=== PATIENT | male | born 1960 | race Caucasian/White ===

== ENCOUNTER → 2023-01-15 13:45 | Outpatient (BNVA) | payer SELFPAY | PROVIDERS: Visit Provider Family Medicine | DX: M06.9 Rheumatoid arthritis, unspecified (principal); M15.9 Polyosteoarthritis, unspecified; F17.200 Nicotine dependence, unspecified, uncomplicated; R03.0 Elevated blood-pressure reading, without diagnosis of hypertension | CPT/HCPCS: 80053; 80061; 85025; 85651; 86160; 86162; 86200; 86235; 86255; 86376; 86431 ==

== ENCOUNTER 2023-12-11 12:38 | Observation (INO) | payer SELFPAY ==
[2023-12-11] VITALS (23 sets, daily range): BP systolic 117–175; BP diastolic 67–110; PULSE 57–92; RESP 15–33; TEMP 36.7–36.9; O2SAT 93–100; BMI 21.1
--- NOTE | 2023-12-11 13:30 | XR_ITS ---
WS: [id number] Exam: XR chest 1V portable [id number] Date/Time of Exam: 12/11/2023 1:37 PM Reason For Exam: dyspnea/cough Exam: XR chest 1V portable [id number] Date/Time of Exam: 12/11/2023 1:37 PM Reason For Exam: dyspnea/cough No priors. The lungs are clear and fully inflated. Unremarkable cardiomediastinal silhouette. Bony structures ar e unremarkable. No pleural effusion. Moderate DJD of the LEFT shoulder. IMPRESSION: 1. No acute cardiopulmonary process.
--- NOTE | 2023-12-11 13:30 | ECG_ITS ---
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 Measurements Intervals [place] Rate: 179 P: 0 MN: 0 QRS: 78 QRSD: 92 T: 37 QT: 235 QTc: 406 Interpretive Statements ATRIAL FIBRILLATION WITH RAPID VENTRICULAR RESPONSE WITH ABERRANT CONDUCTION OR VENTRICULAR PREMATURE COMPLEXES NONSPECIFIC ST & T-WAVE ABNORMALITY CRITICAL TEST RESULT No previous ECG available for comparison Electronically Signed On 12-11-2023 17:59:46 POSTMASTER by Diane Morgan M.D. [id number]
--- NOTE | 2023-12-11 13:31 | ED_ITS ---
HPI - Arrhythmia/Palpitations 2 General: Chief Complaint: ER Hold Stated Complaint: Sent by urgent care Time Seen by Provider: 12/11/23 13:05 Source: patient Mode of arrival: ambulatory History of Present Illness: 63-year-old male who comes in the emerge ncy room from local clinic patient in rapid heart rate intermittently throughout the last week felt lightheaded dizzy some mild chest pain at time shortness of breath with exertion. He has not previously had this before. He has not taken any new or different medications recently. He denies any fever sweats chills nausea vomiting or diarrhea no productive cough MD complaint: rapid heart beat, heart racing , skipped beats , palpitations and irregular heart beat Duration: intermittent Severity: moderate Associated symptoms: Deny anxiety, cough, diaphoresis, muscle cramps, nausea, paresthesias, pre-syncope, sense of impending doom, short of breath, syncope or vomiting Review of Systems 2 Const: Denies: fever(s), chills or diaphoresis Card: Reports: chest pain, palpitations and irregular heart rhythm; Denies: syncope or pre-syncope Resp: Denies: dyspnea GI: Denies: abdominal pain, nausea or vomiting : Denies: dysuria, urinary frequency or urinary urgency Musc: Denies: neck pain, back pain or muscle cramps Skin/Breast: Denies: rash Psych: Denies: anxiety PFSH ED 2 PFSH: Medical History (Updated 12/22/23 @ 07:16 by Nik Gonzalez DO) Atrial fibrillation (HFpEF) heart failure with preserved eje ction fraction Essential hypertension Encounter for smoking cessation counseling Immunization counseling High risk medication use Seropositive rheumatoid arthritis of multiple sites Surgical History No pertinent past surgical history Family History Other Hypertension Rheumatoid arthritis Denies family history of Diabetes Lupus CAD (coronary artery disease) Psoriatic arthritis Clotting disorder Dementia Hyperlipidemia Psychiatric illness Chronic kidney disease (CKD) Anesthesia complication Bleeding disorder Lung disease Cancer Stroke Social History (Updated 12/14/23 @ 12:58 by Susi White MA) Smoking and tobacco/nicotine status: current every day tobacco/nicotine user cigarettes Packs smoked per day: 0.25 Years cigarettes smoked: 45 Alcohol intake: current Alcohol intake frequency: 0-2 Drinks per Day Alcohol type: beer Substance/Drug Use: never Lives independently: Yes Marital status: Single Number of children: 0 Current occupational status: employed Current occupation: [employer] Special javi needs: No Agree to transfusion: Yes Physical Exam 2 Const: GENERAL APPEARANCE: cooperative and comfortable O RIENTATION/CONSCIOUSNESS: Yes awake, Yes oriented to person, Yes oriented to place and Yes oriented to time HENMT: COMMON NORMALS: normocephalic, atraumatic and hearing grossly normal bilaterally HEAD & SCALP: normocephalic and atraumatic Resp: COMMON NORMALS: normal respiratory effort, No retractions, No use of accessory muscles and clear to auscultation bilaterally AUSCULTATION: clear to auscultation bilaterally Cardio: COMMON NORMALS: regular rhythm and No murmurs present (Cardio) R ATE: tachycardic RHYTHM: regular rhythm and abnormal rhythm irregularly irregular GI: COMMON NORMALS: Soft to palpation and No hepatosplenomegaly present A USCULTATION: Yes normoactive bowel sounds PALPATION: Yes Soft to palpation, No Tenderness to palpation present (GI), No Guarding due to palpation present (GI) and Yes No hepatosplenomegaly present Extremity: COMMON NORMALS: normal to inspection, capillary refill normal, no clubbing, cyanosis or edema, no calf tenderness and no pedal edema Neuro: SENSORIUM/ORIENTATION: Yes oriented to person, Yes oriented to place and Yes oriented to time Skin: COMMON NORMALS: no rashes or lesions noted GENERAL SKIN EXAM: no rashes or lesions noted Course 2 Vital Signs: Vital signs: Vital Signs Temperature 97.9 F 12/12/23 03:00 Pulse Rate 50 L 12/12/23 13:05 Respiratory Rate 16 12/12/23 13:05 Blood Pressure 144/79 12/12/23 13:05 Pulse Oximetry 100 12/12/23 13:05 Oxygen Delivery Me thod Room Air 12/12/23 03:00 MDM - Arrhythmia/Palpitations Medical Decision Making Patient was intermittently in A-fib after arrival here initially had plan to give him some Cardizem done he decreased his rate he was in converting to sinus rhythm intermittently. Patient was given p.o. metoprolol. He continued to have intermittent atrial fibrillation but rate was well-controlled. His initial EKG showed a heart rate in the 170s however after being given metoprolol he maintained rate below 100 but was intermittently still in atrial fibrillation with well-controlled rate. He has not had any chest pain. Will admit for further evaluation for new onset atrial fibrillation maintenance of rate control consideration of anticoagulation Lab Data 12/12/23 03:25 12/12/23 03:25 Laboratory Results WBC 9.94 10^3/uL (3.29-11.43) 12/11/23 13:00 RBC 4.49 10^6/uL (3.85-5.65) 12/11/23 13:00 Hgb 14.80 g/dL (11.27-16.99) 12/11/23 13:00 Hct 45.2 % (37-53) 12/11/23 13:00 MCV 100.7 fl (82-101) 12/11/23 13:00 MCH 33.0 pg (27-33) 12/11/23 13:00 MCHC 32.7 g/dL (30-55) 12/11/23 13:00 RDW 13.2 % (12.1-15.1) 12/11/23 13:00 Plt Count 351 10^3/cmm (157-399) 12/11/23 13:00 MPV 9.8 fL (7.4-10.4) 12/11/23 13:00 Neut % (Auto) 67.5 % 12/11/23 13:00 Lymph % (Auto) 21.7 % 12/11/23 13:00 [place] % (Auto) 7.9 % 12/11/23 13:00 Eos % (Auto) 2.1 % 12/11/23 13:00 Baso % (Auto) 0.6 % 12/11/23 13:00 Neut # (Auto) 6.70 10^3/uL (1.8-7.7) 12/11/23 13:00 Lymph # (Auto) 2.2 10^3/uL (0.8-4.8) 12/11/23 13:00 [place] # (Auto) 0.8 10^3/uL (0.2-0.9) 12/11/23 13:00 Eos # (Auto) 0.2 10^3/uL (0.0-0.8) 12/11/23 13:00 Baso # (Auto) 0.1 10^3/uL (0.0-0.1) 12/11/23 13:00 Nucleated RBC % (auto) 0 % 12/11/23 13:00 Nucleated RBCs # 0.0 /100WBC 12/11/23 13:00 PT 13.10 SECONDS (12.1-14.9) 12/11/23 13:00 INR 0.97 (0.8-1.2) 12/11/23 13:00 Sodium 138 mmol/L (136-145) 12/11/23 13:00 Potassium 3.5 mmol/L (3.5-5.1) 12/11/23 13:00 Chloride 101 mmol/L (98-107) 12/11/23 13:00 Carbon Dioxide 25 mmol/L (22-29) 12/11/23 13:00 Anion Gap 15.5 (5-19) 12/11/23 13:00 BUN 15 mg/dL (8-23) 12/11/23 13:00 Creatinine 0.8 mg/dL (0.7-1.2) 12/11/23 13:00 GFR Calculation 98.0 mL/min (90-130) 12/11/23 13:00 Glucose 98 mg/dL (65-115) 12/11/23 13:00 Estimat Average Glucose 111 12/11/23 13:00 Hemoglobin A1c 5.5 % (4.0-6.0) 12/11/23 13:00 Calculated Osmolality 287 mOsm/kg (285-295) 12/11/23 13:00 Calcium 8.8 mg/dL (8.5-10.5) 12/11/23 13:00 Magnesium 2.2 mg/dL (1.7-2.3) 12/11/23 13:00 Total Bilirubin 0.5 mg/dL (0.15-1.2) 12/11/23 13:00 AST 20 U/L (0-40) 12/11/23 13:00 ALT 18 U/L (0-41) 12/11/23 13:00 Alkaline Phosphatase 88 U/L (40-130) 12/11/23 13:00 Troponin T Baseline 21 ng/L (0-15) H 12/11/23 13:00 Troponin T 120 Minute 20.34 ng/L (0-15) H 12/11/23 13:26 Delta Troponin T -0.66 ABS# (0-10) L 12/11/23 13:26 NT-Pro-B Natriuret Pep 923 pg/mL (0-125) H 12/11/23 13:00 Total Protein 7.4 g/dL (6.6-8.7) 12/11/23 13:00 Albumin 4.0 g/dL (3.5-5.2) 12/11/23 13:00 Globulin 3.4 g/dL (1.3-4.6) 12/11/23 13:00 Triglycerides 90 mg/dL (0-150) 12/11/23 13:00 Cholesterol 223 mg/dL (0-200) H 12/11/23 13:00 LDL Cholesterol, Calc 123 mg/dL (50-129) 12/11/23 13:00 HDL Cholesterol 82 mg/dL (60-100) 12/11/23 13:00 LDL/HDL Ratio 1.50 RATIO (0.00-3.22) 12/11/23 13:00 Cholesterol/HDL Ratio 2.72 mg/dL (1.0-5.00) 12/11/23 13:00 TSH 0.76 uIU/mL (0.27-4.20) 12/11/23 13:00 Urine Color Yellow (Yellow) 12/11/23 13:50 Urine Appearance Clear (CLEAR) 12/11/23 13:50 Urine pH 7 (5-7) 12/11/23 13:50 Ur Specific [place] 1.015 (1.005-1.030) 12/11/23 13:50 Urine Protein Trace (Negative) 12/11/23 13:50 Urine Glucose (UA) Norm (Normal) 12/11/23 13:50 Urine Ketones 1+ (Negative) H 12/11/23 13:50 Urine Blood Neg (Negative) 12/11/23 13:50 Urine Nitrate Negative (Negative) 12/11/23 13:50 Urine Bilirubin Neg (Negative) 12/11/23 13:50 Urine Urobilinogen Norm mg/dL (Negative) 12/11/23 13:50 Ur Leukocyte Esterase Negative (Negative) 12/11/23 13:50 Urine RBC None /hpf (0-2) 12/11/23 13:50 Urine WBC None /hpf (0-5) 12/11/23 13:50 Ur Squamous Epith Cells 0-4 /hpf (0-5) H 12/11/23 13:50 Amorphous Sediment 1+ /hpf 12/11/23 13:50 Urine Bacteria Trace /hpf (NONE) 12/11/23 13:50 Urine Opiates Screen Negative ng/mL (Negative) 12/11/23 13:50 Ur Barbiturates Screen Negative ng/mL (Negative) 12/11/23 13:50 Ur Phencyclidine Scrn Negative ng/mL (Negative) 12/11/23 13:50 Ur Amphetamines Screen Negative ng/mL (Negative) 12/11/23 13:50 U Benzodiazepines Scrn Negative ng/mL (Negative) 12/11/23 13:50 Urine Cocaine Screen Negative ng/mL (Negative) 12/11/23 13:50 U Marijuana (THC) Screen Negative ng/mL (Negative) 12/11/23 13:50 All radiology interpretation(s) finalized by discharge Discharge Plan Discharge Patient Disposition: Admitted As Inpatient Admit Provider: Meng Araiza Clinical Impression: Atrial fibrillation with rapid ventricular response, Essential hypertension Condition: Stable Discharge Diet: Cardiac Discharge Activity: Resume usual activity Coding Level of Care Code ED Art Class Model for Kandice Lima
[2023-12-11 13:40] LABS: Basophils # 0.1 10^3/uL (0.0-0.1); Basophils % 0.6 %; Eosinophils # 0.2 10^3/uL (0.0-0.8); Eosinophils % 2.1 %; Hematocrit 45.2 % (37-53); Lymphocytes # 2.2 10^3/uL (0.8-4.8); Lymphocytes % 21.7 %; Mean Corpuscular HGB Conc 32.7 g/dL (30-55); Mean Corpuscular Volume 100.7 fl (82-101); Mean Platelet Volume 9.8 fL (7.4-10.4); Monocytes # 0.8 10^3/uL (0.2-0.9); Monocytes % 7.9 %; Neutrophils % 67.5 %; Nucleated Red Blood Cells % 0 %; Platelet Count 351 10^3/cmm (157-399); Red Blood Count 4.49 10^6/uL (3.85-5.65); Red Cell Distribution Width 13.2 % (12.1-15.1); White Blood Count 9.94 10^3/uL (3.29-11.43)
[2023-12-11] MEDS: metoprolol tartrate 50 mg Tablet PO ×2 (13:45→18:20)
[2023-12-11 13:57] LABS: Alanine Aminotransferase 18 U/L (0-41); Alkaline Phosphatase 88 U/L (40-130); Anion Gap 15.5 (5-19); Aspartate Amino Transferase 20 U/L (0-40); Blood Urea Nitrogen 15 mg/dL (8-23); Calcium 8.8 mg/dL (8.5-10.5); Carbon Dioxide 25 mmol/L (22-29); Chloride 101 mmol/L (98-107); Creatinine Clr Calc Pharmacy 94.2982; Globulin 3.4 g/dL (1.3-4.6); Glucose 98 mg/dL (65-115); Osmolality Calculated 287 mOsm/kg (285-295); Potassium 3.5 mmol/L (3.5-5.1); Sodium 138 mmol/L (136-145); Total Bilirubin 0.5 mg/dL (0.15-1.2); Total Protein 7.4 g/dL (6.6-8.7)
[2023-12-11 13:59] LABS: Troponin(5th) Baseline 21 ng/L (0-15)
[2023-12-11 14:08] LABS: Add Urine Microscopic? YES; Bilirubin Urine Neg (Negative); Blood Urine Neg (Negative); Glucose Urine UA Norm (Normal); Ketones Urine 1+ (Negative); Leukocyte Esterase Urine Negative (Negative); Nitrate Urine Negative (Negative); Protein Urine Trace (Negative); Specific Gravity, Urine 1.015 (1.005-1.030); Urine Appearance Clear (CLEAR); Urine Color Yellow (Yellow); Urobilinogen Urine Norm (Negative); pH Urine 7 (5-7)
[2023-12-11 14:12] LABS: Add Urine Culture? No; Amorphous Sediment Urine 1+ /hpf; Bacteria Urine TRACE /hpf; Squamous Epithelial Cell Urine 0-4 /hpf (0-5)
--- NOTE | 2023-12-11 14:52 | USCV_ITS ---
Barak Cross Age: 63 Gender: M : 1960 Exam Date: 12/11/2023 16:27 Ordering Phys: Meng Araiza MD Technologist: NGA Exam Location[place] [facility] [place] Indication: afib BP: 145 / 95 HR: Rhythm: Sinus Technical Quality: Adequate MEASUREMENTS (Male / Female) Normal Values 2D ECHO LVOT Diameter 2.1 cm LV Ejection Fraction MOD 2C 63.0 % LV Ejection Fraction 2C AL 0.0 % LA Diameter 3.6 cm RA Systolic Volume 4C AL 34.7 ml RA Systolic Volume 4C MOD 34.8 ml Aorta at Sinotubular Diameter 2.8 cm IVC Diameter 1.7 cm M-MODE LA Ao Ratio MM 1.3 AV Cusp Separation MM 2.2 cm DOPPLER AV Peak Velocity 141.0 cm/s LVOT Peak Velocity 97.0 cm/s AV Area Cont Eq vti 2.3 cm squared AV Area Cont Eq pk 2.3 cm squared MV Peak Velocity 116.0 cm/s MV Area PHT 5.3 cm squared Mitral E to A Ratio 0.9 TV Peak Velocity 118.0 cm/s TR Peak Velocity 143.0 cm/s TR Peak Gradient 8.2 mmHg TR Mean Velocity 112.0 cm/s TR Mean Gradient 5.4 mmHg TR Velocity Time Integral 24.3 cm PV Peak Velocity 78.0 cm/s RV Ejection Time 0.3 s FINDINGS Left Ventricle Left ventricle is normal in size. LV systolic function is normal with EF of 50 to 55%. No regional wall motion abnormalities are seen. Grade 1 diastolic dysfunction. Right Ventricle Normal in size and function Right Atrium Normal in size Left Atrium Dilated Mitral Valve Structurally normal mitral valve. Mild mitral regurgitation Aortic Valve Structurally normal aortic valve. No significant stenosis or regurgitation. Tricuspid Valve Mild tricuspid regurgitation. Insufficient TR jet to calculate RVSP Pulmonic Valve Trace pulmonic regurgitation. Pericardium Normal Aorta Normal in size IVC Appears to be normal CONCLUSIONS LV systolic function is normal with EF of 50-55% Grade 1 diastolic dysfunction Left atrial dilation Mild mitral regurgitation Mild tricuspid regurgitation Trace pulmonic regurgitation No comparison studies are available. Justino Morgan MD (Electronically Signed) Final Date: 11 December 2023 22:32 S
--- NOTE | 2023-12-11 14:53 | PM.HP ---
Providers/Chief Complaint Primary Care Provider: Teo Watts MD Chief Complaint: Sent by urgent care, High Heart rate History of Present Illness Barak Fair is a 63 year old male with a past medical history of smoking, history of rheumatoid arthritis, hypertension who presents [facility] due to chest palpitations. Patient tells me that he has had chest palpitations for the last week, no chest pain, does have intermittent shortness of breath, does report dizziness with the chest palpitations, denies any drug use is a smoker, no history of vaping, does have a family history of atrial fibrillation, he presented to Dr. Arguelles's office was found to have A-fib with RVR, advised to come to emergency room, here he has had episodes of A-fib with RVR requiring 50 mg of p.o. metoprolol, currently in A-fib, heart rates in the 160s to 180s, plan is to start him on amiodarone drip, moving to cardiac stepdown unit, currently he is hypertensive blood pressures 160s over 100's Review of Systems Const: Denies: fever(s) Card: Reports: palpitations; Denies: chest pain or swelling of feet/ankles Resp: Reports: dyspnea GI: Denies: abdominal pain Neuro: Denies: headache(s) or numbness in extremities Medications/Allergies Home Medications Medication Instructions Recorded Confirmed Last Taken Type folic acid 1 mg tablet 1 mg PO DAILY #90 tabs 07/13/23 12/11/23 1 Month Ago Rx ~11/12/23 methotrexate sodium 2.5 mg tablet See Rx Instructions PO .Q7days #90 10/21/23 12/11/23 1 Month Ago Rx tabs ~11/12/23 Allergies Allergy/AdvReac Type Severity Reaction Status Date / Time No Known Allergies Allergy Verified 12/11/23 12:15 PFSH Acute PFSH: Medical History (Updated 12/11/23 @ 14:55 by Meng Araiza MD) Encounter for smoking cessation counseling Immunization counseling High risk medication use Seropositive rheumatoid arthritis of multiple sites Surgical History (Updated 12/11/23 @ 14:55 by Meng Araiza MD) No pertinent past surgical history Family History Other Hypertension Rheumatoid arthritis Denies family history of Diabetes Lupus CAD (coronary artery disease) Psoriatic arthritis Clotting disorder Dementia Hyperlipidemia Psychiatric illness Chronic kidney disease (CKD) Anesthesia complication Bleeding disorder Lung disease Cancer Stroke Social History Smoking and tobacco/nicotine status: current every day tobacco/nicotine user cigarettes Packs smoked per day: 1 Alcohol intake: current Alcohol intake frequency: 0-2 Drinks per Day Alcohol type: beer Substance/Drug Use: never Lives independently: Yes Marital status: Single Number of children: 0 Current occupational status: employed Current occupation: [employer] Special javi needs: No Agree to transfusion: Yes Vitals/I&O/Wt Last Vital Signs Temp 98.0 F 12/11/23 12:41 Pulse 88 12/11/23 12:50 Resp 18 12/11/23 12:50 BP 173/108 12/11/23 12:50 Pulse Ox 99 12/11/23 12:50 O2 Del Method Room Air 12/11/23 12:41 Weight last 48 hrs Weight 68.039 kg Physical Exam Const: COMMON NORMALS: no acute distress and patient oriented x3 HENMT: COMMON NORMALS: normocephalic HEAD & SCALP: normocephalic Eye: COMMON NORMALS: Equal, round and reactive pupils present and EOMs intact bilaterally Resp: COMMON NORMALS: normal respiratory effort, No retractions, No use of accessory muscles and clear to auscultation bilaterally AUSCULTATION: clear to auscultation bilaterally Cardio: COMMON NORMALS: S1 normal heart sound present and S2 normal heart sound present RATE: tachycardic RHYTHM: abnormal rhythm irregularly irregular HEART SOUNDS: S1 normal heart sound present and S2 normal heart sound present GI: COMMON NORMALS: Normal to inspection, nondistended, normoactive bowel sounds present, Soft to palpation, non-tender, No hepatosplenomegaly present, no masses and no bruits PALPATION: Yes Soft to palpation and Yes No hepatosplenomegaly present Extremity: COMMON NORMALS: capillary refill normal, no clubbing, cyanosis or edema, no calf tenderness and no pedal edema Neuro: COMMON NORMALS: patient oriented x3, CN's II-XII intact bilaterally and moves all extremities Psych: COMMON NORMALS: mental status grossly normal Data 12/11/23 13:00 12/11/23 13:00 A&P Assessment and plan (1) Atrial fibrillation with RVR: (2) Tobacco abuse counseling: (3) Encounter for smoking cessation counseling: Plan A-fib with RVR -Currently heart rates in 160s to 180s -Alert oriented x 3, following all commands no hemodynamic compromise -Check TSH, mag, troponin series, cardiac echo, A1c, lipid panel -Start amiodarone drip -Metoprolol 50 twice daily -Will moved to cardiac stepdown unit -Aspirin 81 mg -CHADS2 Vasc score 1, although patient does not have a diagnosis formally of hypertension he has been noted to have elevated blood pressures, in the past, but no formal diagnosis, will start aspirin 81 mg, based on shared decision making we will decide on further anticoagulant therapy -Full code -Lovenox for DVT prophylaxis Attestations Medical Necessity Statement*: Patient requires hospitalization, outpatient with observation, for A-fib with RVR Diagnoses Atrial fibrillation with RVR I48.91 Tobacco abuse counseling Z71.6 Encounter for smoking cessation counseling Z71.6
[2023-12-11 15:18] LABS: Magnesium 2.2 mg/dL (1.7-2.3); NT Pro B Type Natriuretic Pept 923 pg/mL (0-125)
[2023-12-11 15:20] LABS: INR 0.97 (0.8-1.2)
[2023-12-11 15:28] LABS: Amphetamines Screen Urine Negative (Negative); Barbiturates Screen Urine Negative (Negative); Benzodiazepines Screen Urine Negative (Negative); Cocaine Screen Urine Negative (Negative); Opiate Screen Urine Negative (Negative); PCP Screen Urine Negative (Negative); THC Screen Urine Negative (Negative)
--- NOTE | 2023-12-11 15:30 | ECG_ITS ---
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 Measurements Intervals [place] Rate: 69 P: 69 [place]: 120 QRS: 81 QRSD: 96 T: 62 QT: 389 QTc: 418 Interpretive Statements SINUS RHYTHM POSSIBLE LEFT ATRIAL ENLARGEMENT [-0.1mV P-WAVE IN V1/V2] Compared to ECG 12/11/2023 12:42:53 Atrial fibrillation no longer present Aberrant conduction of supraventricular beat(s) no longer present Ventricular premature complex(es) no longer present T-wave abnormality no longer present Electronically Signed On 12-11-2023 18:04:43 [employer] BACK COUNTER MAN by Diane Morgan M.D. [email or web address] [email or web address] [id number]
[2023-12-11 16:00] LABS: Troponin 5 2HR 20.34 ng/L (0-15)
[2023-12-11 16:01] LABS: Troponin 5 2HR Delta -0.66 ABS# (0-10)
[2023-12-11 17:21] LABS: Estmated Average Glucose 111; Hemoglobin A1C 5.5 % (4.0-6.0)
[2023-12-11 17:36] LABS: Chol HDL Ratio 2.72 mg/dL (1.0-5.00); Cholesterol 223 mg/dL (0-200); HDL Cholesterol 82 mg/dL (60-100); LDL Cholesterol Calculated 123 mg/dL (50-129); Thyroid Stimulating Hormone 0.76 uIU/mL (0.27-4.20); Triglycerides 90 mg/dL (0-150)
[2023-12-11] MEDS: pantoprazole 40 mg SDV IVP (18:20)
[2023-12-11] MEDS: enoxaparin 40 mg/0.4 mL Syringe SUBCUT (18:20)
[2023-12-11] MEDS: aspirin 81 mg EC Tablet PO (18:21)
--- NOTE | 2023-12-11 18:54 | PC.NURSE ---
Shift summary: Pt here for just a couple hours. Remains in sinus rhythm. Occasional PVcs noted. Amio gtt remains infusing. Echo done. Pt ate half his meal. No chest pains or dizziness. Pt urinated once.
[2023-12-11 19:29] LABS: Troponin 5 6HR 24.26 ng/L (0-15); Troponin 5 6HR Delta 3.26 ng/L (0-12)
--- NOTE | 2023-12-11 21:22 | ECG_ITS ---
[facility] Test Date: 2023-12-11 Pat Name: Barak Fair Department: Room: [facility] Gender: Male Development Analyst: : 1960 Requested By: Nik Batres Order Number: [id number] Chikis MD: Justino Morgan M.D. Measurements Intervals [place] Rate: 59 P: 63 OR: 126 QRS: 81 QRSD: 89 T: 77 QT: 463 QTc: 460 Interpretive Statements SINUS BRADYCARDIA Electronically Signed On 12-12-2023 10:12:[address] by Justino Morgan M.D. [id number]
[2023-12-12] VITALS (28 sets, daily range): BP systolic 119–190; BP diastolic 65–101; PULSE 50–80; RESP 15–31; TEMP 36.6; O2SAT 85–100
[2023-12-12 03:59] LABS: Basophils # 0.1 10^3/uL (0.0-0.1); Basophils % 0.8 %; Eosinophils # 0.5 10^3/uL (0.0-0.8); Eosinophils % 5.6 %; Hematocrit 41.6 % (37-53); Lymphocytes # 2.5 10^3/uL (0.8-4.8); Lymphocytes % 28.8 %; Mean Corpuscular HGB Conc 32.7 g/dL (30-55); Mean Corpuscular Hemoglobin 33.2 pg (27-33); Mean Corpuscular Volume 101.5 fl (82-101); Mean Platelet Volume 9.7 fL (7.4-10.4); Monocytes # 0.7 10^3/uL (0.2-0.9); Monocytes % 7.6 %; Neutrophils # 5.03 10^3/uL (1.8-7.7); Nucleated Red Blood Cells % 0 %; Platelet Count 282 10^3/cmm (157-399); Red Cell Distribution Width 13.2 % (12.1-15.1); White Blood Count 8.82 10^3/uL (3.29-11.43)
[2023-12-12 04:21] LABS: Alanine Aminotransferase 19 U/L (0-41); Albumin Level 3.5 g/dL (3.5-5.2); Alkaline Phosphatase 78 U/L (40-130); Anion Gap 13.1 (5-19); Aspartate Amino Transferase 26 U/L (0-40); Blood Urea Nitrogen 14 mg/dL (8-23); Calcium 8.5 mg/dL (8.5-10.5); Carbon Dioxide 26 mmol/L (22-29); Chloride 105 mmol/L (98-107); Creatinine Clr Calc Pharmacy 92.6521; Globulin 2.8 g/dL (1.3-4.6); Glucose 102 mg/dL (65-115); Osmolality Calculated 291 mOsm/kg (285-295); Phosphorus 2.9 mg/dL (2.5-4.5); Potassium 4.1 mmol/L (3.5-5.1); Sodium 140 mmol/L (136-145); Total Bilirubin 0.4 mg/dL (0.15-1.2); Total Protein 6.3 g/dL (6.6-8.7)
--- NOTE | 2023-12-12 06:06 | PC.NURSE ---
Patient's heart rate is 55 to 60. Patient is on amiodarone at 0.5mg/min currently and has dose of metoprolol 50mg. Informed Dr James and received order to hold metoprolol dose this am and continue with amiodarone as ordered. RBVO
[2023-12-12] MEDS: folic acid 1 mg Tablet PO (08:39)
[2023-12-12] MEDS: aspirin 81 mg EC Tablet PO (08:39)
[2023-12-12] MEDS: metoprolol tartrate 50 mg Tablet PO (10:07)
[2023-12-12] MEDS: amlodipine 10 mg Tablet PO (11:45)
--- NOTE | 2023-12-12 12:30 | P.DS_ITS ---
Discharge Providers Date of Admission: 12/11/23 14:48 Date of Discharge: December 12, 2023 Attending Provider at Admission: Meng Araiza MD Attending Provider at Discharge: Meng Araiza MD Primary Care Provider: Teo Watts MD Diagnoses at Discharge Discharge Diagnosis (1) Atrial fibrillation with RVR: Status: Acute (2) Tobacco abuse counseling: Status: Acute (3) Encounter for smoking cessation counseling: Status: Acute Reason for Visit Reason for Visit: Sent by urgent care, High Heart rate Hospital Course Hospital Course Barak Fair is a 63 year old male with a past medical history of smoking, history of rheumatoid arthritis, hypertension who presents [facility] due to chest palpitations. Patient tells me that he has had chest palpitations for the last week, no chest pain, does have intermittent shortness of breath, does report dizziness with the chest palpitations, denies any drug use is a smoker, no history of vaping, does have a family history of atrial fibrillation, he presented to Dr. Arguelles's office was found to have A-fib with RVR, advised to come to emergency room, here he has had episodes of A-fib with RVR requiring 50 mg of p.o. metoprolol, currently in A-fib, heart rates in the 160s to 180s, plan is to start him on amiodarone drip, moving to cardiac stepdown unit, currently he is hypertensive blood pressures 160s over 100's Patient was monitored at [facility], managed on amiodarone, p.o. metoprolol, he converted to normal sinus rhythm, discharged on meToprol 50 twice daily inTerms of anticoagulation, chads Vascor was 1, we discussed the risks and benefits of anticoagulation, for now he wants to proceed with aspirin 81 mg once daily, shared decision making, he voiced understanding, all questions answered, agreed to proceed, follow-up with primary care and cardiology as outpatient. For his hypertension discharged on metoprolol 50 twice daily, Norvasc 10 mg once daily see primary care provider as outpatient for blood pressure monitoring Patient was advised if he has any chest pain or any strokelike symptoms please call 911 Physical Exam Const: COMMON NORMALS: no acute distress and patient oriented x3 Resp: COMMON NORMALS: normal respiratory effort, No retractions, No use of accessory muscles and clear to auscultation bilaterally AUSCULTATION: clear to auscultation bilaterally Cardio: COMMON NORMALS: regular rate, regular rhythm, S1 normal heart sound present and S2 normal heart sound present RATE: regular rate RHYTHM: regular rhythm HEART SOUNDS: S1 normal heart sound present and S2 normal heart sound present GI: COMMON NORMALS: Normal to inspection, nondistended, normoactive bowel sounds present and non-tender Extremity: COMMON NORMALS: no pedal edema Neuro: COMMON NORMALS: patient oriented x3 Psych: COMMON NORMALS: mental status grossly normal Discharge Data Studies Completed and Pending Completed Studies During Hospitalization Category Date Time Status XR chest 1V portable [id number] Stat Exams 12/11/23 13:30 Completed Pending at discharge Category Date Time Status Complete Blood Count w/Auto AM LABS Lab 12/13/23 04:00 Ordered Complete Blood Count w/Auto AM LABS Lab 12/14/23 04:00 Ordered Comprehensive Metabolic Panel AM LABS Lab 12/13/23 04:00 Ordered Comprehensive Metabolic Panel AM LABS Lab 12/14/23 04:00 Ordered Phosphorus AM LABS Lab 12/13/23 04:00 Ordered Phosphorus AM LABS Lab 12/14/23 04:00 Ordered CV. echo complete* [id number] Routine Ultrasound 12/11/23 14:52 Taken Laboratory Results WBC 8.82 10^3/uL (3.29-11.43) 12/12/23 03:25 RBC 4.10 10^6/uL (3.85-5.65) 12/12/23 03:25 Hgb 13.60 g/dL (11.27-16.99) 12/12/23 03:25 Hct 41.6 % (37-53) 12/12/23 03:25 MCV 101.5 fl (82-101) H 12/12/23 03:25 MCH 33.2 pg (27-33) H 12/12/23 03:25 MCHC 32.7 g/dL (30-55) 12/12/23 03:25 RDW 13.2 % (12.1-15.1) 12/12/23 03:25 Plt Count 282 10^3/cmm (157-399) 12/12/23 03:25 MPV 9.7 fL (7.4-10.4) 12/12/23 03:25 Neut % (Auto) 57.0 % 12/12/23 03:25 Lymph % (Auto) 28.8 % 12/12/23 03:25 Davis % (Auto) 7.6 % 12/12/23 03:25 Eos % (Auto) 5.6 % 12/12/23 03:25 Baso % (Auto) 0.8 % 12/12/23 03:25 Neut # (Auto) 5.03 10^3/uL (1.8-7.7) 12/12/23 03:25 Lymph # (Auto) 2.5 10^3/uL (0.8-4.8) 12/12/23 03:25 Davis # (Auto) 0.7 10^3/uL (0.2-0.9) 12/12/23 03:25 Eos # (Auto) 0.5 10^3/uL (0.0-0.8) 12/12/23 03:25 Baso # (Auto) 0.1 10^3/uL (0.0-0.1) 12/12/23 03:25 Nucleated RBC % (auto) 0 % 12/12/23 03:25 Nucleated RBCs # 0.0 /100WBC 12/12/23 03:25 PT 13.10 SECONDS (12.1-14.9) 12/11/23 13:00 INR 0.97 (0.8-1.2) 12/11/23 13:00 Sodium 140 mmol/L (136-145) 12/12/23 03:25 Potassium 4.1 mmol/L (3.5-5.1) 12/12/23 03:25 Chloride 105 mmol/L (98-107) 12/12/23 03:25 Carbon Dioxide 26 mmol/L (22-29) 12/12/23 03:25 Anion Gap 13.1 (5-19) 12/12/23 03:25 BUN 14 mg/dL (8-23) 12/12/23 03:25 Creatinine 0.8 mg/dL (0.7-1.2) 12/12/23 03:25 GFR Calculation 98.0 mL/min (90-130) 12/12/23 03:25 Glucose 102 mg/dL (65-115) 12/12/23 03:25 Estimat Average Glucose 111 12/11/23 13:00 Hemoglobin A1c 5.5 % (4.0-6.0) 12/11/23 13:00 Calculated Osmolality 291 mOsm/kg (285-295) 12/12/23 03:25 Calcium 8.5 mg/dL (8.5-10.5) 12/12/23 03:25 Phosphorus 2.9 mg/dL (2.5-4.5) 12/12/23 03:25 Magnesium 2.2 mg/dL (1.7-2.3) 12/11/23 13:00 Total Bilirubin 0.4 mg/dL (0.15-1.2) 12/12/23 03:25 AST 26 U/L (0-40) 12/12/23 03:25 ALT 19 U/L (0-41) 12/12/23 03:25 Alkaline Phosphatase 78 U/L (40-130) 12/12/23 03:25 Troponin T Baseline 21 ng/L (0-15) H 12/11/23 13:00 Troponin T 120 Minute 20.34 ng/L (0-15) H 12/11/23 13:26 Delta Troponin T -0.66 ABS# (0-10) L 12/11/23 13:26 Troponin T Hi Sens 6Hr 24.26 ng/L (0-15) H 12/11/23 18:59 Troponin T Hi Sens 6Hr Delta 3.26 ng/L (0-12) 12/11/23 18:59 NT-Pro-B Natriuret Pep 923 pg/mL (0-125) H 12/11/23 13:00 Total Protein 6.3 g/dL (6.6-8.7) L 12/12/23 03:25 Albumin 3.5 g/dL (3.5-5.2) 12/12/23 03:25 Globulin 2.8 g/dL (1.3-4.6) 12/12/23 03:25 Triglycerides 90 mg/dL (0-150) 12/11/23 13:00 Cholesterol 223 mg/dL (0-200) H 12/11/23 13:00 LDL Cholesterol, Calc 123 mg/dL (50-129) 12/11/23 13:00 HDL Cholesterol 82 mg/dL (60-100) 12/11/23 13:00 LDL/HDL Ratio 1.50 RATIO (0.00-3.22) 12/11/23 13:00 Cholesterol/HDL Ratio 2.72 mg/dL (1.0-5.00) 12/11/23 13:00 TSH 0.76 uIU/mL (0.27-4.20) 12/11/23 13:00 Urine Color Yellow (Yellow) 12/11/23 13:50 Urine Appearance Clear (CLEAR) 12/11/23 13:50 Urine pH 7 (5-7) 12/11/23 13:50 Ur Specific [place] 1.015 (1.005-1.030) 12/11/23 13:50 Urine Protein Trace (Negative) 12/11/23 13:50 Urine Glucose (UA) Norm (Normal) 12/11/23 13:50 Urine Ketones 1+ (Negative) H 12/11/23 13:50 Urine Blood Neg (Negative) 12/11/23 13:50 Urine Nitrate Negative (Negative) 12/11/23 13:50 Urine Bilirubin Neg (Negative) 12/11/23 13:50 Urine Urobilinogen Norm mg/dL (Negative) 12/11/23 13:50 Ur Leukocyte Esterase Negative (Negative) 12/11/23 13:50 Urine RBC None /hpf (0-2) 12/11/23 13:50 Urine WBC None /hpf (0-5) 12/11/23 13:50 Ur Squamous Epith Cells 0-4 /hpf (0-5) H 12/11/23 13:50 Amorphous Sediment 1+ /hpf 12/11/23 13:50 Urine Bacteria Trace /hpf (NONE) 12/11/23 13:50 Urine Opiates Screen Negative ng/mL (Negative) 12/11/23 13:50 Ur Barbiturates Screen Negative ng/mL (Negative) 12/11/23 13:50 Ur Phencyclidine Scrn Negative ng/mL (Negative) 12/11/23 13:50 Ur Amphetamines Screen Negative ng/mL (Negative) 12/11/23 13:50 U Benzodiazepines Scrn Negative ng/mL (Negative) 12/11/23 13:50 Urine Cocaine Screen Negative ng/mL (Negative) 12/11/23 13:50 U Marijuana (THC) Screen Negative ng/mL (Negative) 12/11/23 13:50 Vitals Last Vital Signs Temp 97.9 F 12/12/23 03:00 Pulse 57 L 12/12/23 12:00 Resp 17 12/12/23 12:00 BP 164/90 12/12/23 12:00 Pulse Ox 99 12/12/23 11:30 O2 Del Method Room Air 12/12/23 03:00 Discharge Plan Discharge Patient Disposition: Home Condition: Stable Prescriptions: New aspirin 81 mg Tablet,Delayed Release (Dr/Ec) 81 mg PO DAILY 30 Days Qty: 30 0RF amlodipine 10 mg Tablet 10 mg PO DAILY 30 Days Qty: 30 0RF metoprolol tartrate 50 mg Tablet 50 mg PO Q12H 30 Days Qty: 60 0RF clonidine HCl 0.1 mg tablet 0.1 mg PO BID PRN (Reason: for sbp>180 or dbp>100) 30 Days Qty: 60 0RF Continued folic acid 1 mg tablet 1 mg PO DAILY Qty: 90 3RF methotrexate sodium 2.5 mg tablet See Rx Instructions PO .Q7days Qty: 90 0RF Rx Instructions: take 6 tabs on same day once a week PO .Q7days; Discharge Orders: Discharge Order (Routine); Ordered 12/12/23 Ordered By: Meng Araiza Referrals: Justino Morgan M.D [Physician] - 1 week (A message [facility] been [facility] for a follow up appointment to be set up with them. You should be receiving a call on Thursday with the appointment information. If you should not hear from them by Thursday afternoon, please call them at [phone] to set up your appontment.) Teo Watts MD [Primary Care Provider] - 1 week (A message has been sent to Teo Watts for a follow up appointment to be set up with them. You should be receiving a call on Thursday with the appointment information. If you should not hear from his office by Thursday afternoon, please call them at [phone] to set up your appontment) Discharge Diet: Cardiac Discharge Activity: Resume usual activity Patient Instructions: Metoprolol (By mouth), Clonidine (By mouth), Aspirin (By mouth), Amlodipine (By mouth), Hypertension, A-fib (Atrial Fibrillation) (DC), O pioid Safety Activity Restrictions/Additional Instructions: - Please take aspirin 81 mg once daily -Please take metoprolol 50 twice daily -Please stop smoking -Please monitor blood pressure twice daily, if systolic greater than 180 or diastolic greater than 100 take clonidine 0.1mg, and you can use it twice daily -Follow-up with cardiology -If any chest pain please go to emergency room Discharge Attestations Time Spent in Discharge Care*: greater than 30 min Quality Metrics Clinical Quality Measures [ No reported AMI, CVA or VTE this stay] Coding Level of Care Code 55922 Total time (in minutes) for Discharge: 45 Diagnoses Atrial fibrillation with RVR I48.91 Tobacco abuse counseling Z71.6 Encounter for smoking cessation counseling Z71.6
--- NOTE | 2023-12-12 13:45 | PC.NURSE ---
Discharge Note Patient discharged to [home] via [w/c to POV] accompanied by []. Discharge instructions reviewed with patient and/or malt liquors sales representative. Mobile pharmacy medications and/or prescriptions provided. Belongings/home medications returned.
== END 2023-12-12 13:35 | disposition home or self-care (01) ==
LOC: ER 13:31 → ER IP 15:46 → ICU 16:04
PROVIDERS: Admitting Provider Family Medicine; Emergency Provider Family Medicine; PCP Family Medicine; Visit Provider Family Medicine
DX: I48.91 Unspecified atrial fibrillation (principal); Z71.6 Tobacco abuse counseling; Z87.891 Personal history of nicotine dependence; M06.9 Rheumatoid arthritis, unspecified; I10 Essential (primary) hypertension; Z79.01 Long term (current) use of anticoagulants; M06.09 Rheumatoid arthritis without rheumatoid factor, multiple sites; F17.210 Nicotine dependence, cigarettes, uncomplicated
CPT/HCPCS: 36415; 71045; 80053; 80061; 80306; 81001; 83036; 83735; 83880; 84100; 84443; 84484; 85025; 85610; 93005; 93306; 96365; 96366; 96372; 96375; 99285; C9113; G0378; J0283; J1650

== ENCOUNTER 2024-11-21 08:00 | Outpatient (CLI) | payer OTHER, SELFPAY ==
--- NOTE | 2024-11-21 | ECG_ITS ---
[facility] Test Date: 2024-11-21 Pat Name: Barak Fair Department: Room: Gender: Male Microbiology Technician: : 1960 Requested By: Genesis Ivan Order Number: [id number] Diop MD: Diane Morgan M.D. Interpretive Statements Lung unchanged pre/post procedure; Intraprocedure shortess of breath; Symptoms resoled by discharge PROCEDURE: The baseline electrocardiogram showed normal sinus rhythm with normal ST-Ts. At the baseline, the patient's blood pressure was mm Hg with a heart rate of. The patient exercised for on a standard Nolan protocol. Patient attained a maximum heart rate of beats per minute(% of the maximum predicted heart rate) with a blood pressure at the peak exercise of mm Hg. The EKG at the peak exercise revealed [address]ressions in leads II, III, aVF, V4, V5 and V6. Patient did [not have any chest pain . Frequent PVCs in the form of isolated beats, couplets were noted. Sestamibi was injected 1 minute prior to the peak exercise During the recovery phase, there were no new changes. The EKG reverted almost back to baseline. Patient had an episode of SVT with a heart rate of 171 bpm, lasting for 2 minutes or so during the recovery phase. It spontaneously converted to sinus with Valsalva maneuver. Blood pressure at the end of the recovery phase was 139/84 mm Hg with a heart rate of 10 per minute. CONCLUSION: 1. Abnormal EKG response to treadmill exercise suggesting inferior and anterolateral wall ischemia 2. No exercise-induced chest pain . 3. Exercise-induced ventricular arrhythmia in the form of isolated beats and couplets. Post exercise SVT lasting for 2 minutes converted to sinus rhythm/tachycardia by vagal maneuvers . 3. Impaired exercise tolerance, attained a maximum of 7.0 METs 4. Sestamibi/Sestamibi perfusion results pending; see separate report. Electronically Signed On 11-28-2024 06:56:19 FISHING TOOL SUPERVISOR by Diane Morgan M.D. [email or web address]
[2024-11-21 08:15] VITALS: BMI 22.6
--- NOTE | 2024-11-21 08:17 | NMCV_ITS ---
NM dione perf SPECT r/s* [id number] Barak Fair Age: 63 Gender: M : 1960 Exam Date: 11/21/2024 09:22 Ordering Phys: Genesis Ivan MD Technologist: JEANETTE Colmenares Exam Location: [facility] Indications: cp STRESS TEST Please [facility] IMAGE PROTOCOL Rest/Stress 1 Exercise Day Radiopharmaceutical Dose (mCi) Administration Site Administered by Rest: Tc-99m 11 IV Guillermina Beltrán STRATEGY INTERN Sestamibi Stress:Tc-99m 32.5 IV Guillermina Beltrán, STRATEGY INTERN Sestamibi Rest: 21-Nov-2024 60 Discovery 630 Stress: 21-Nov-2024 30 Discovery 630 Radiopharmaceutical was injected at 90 % maximum heart rate. Images obtained in supine and prone position. SPECT RESULTS Technical Quality: Good Raw Data Analysis: Normal Image Corrections: No attenuation or motion correction applied Summed Stress Score: 0 Summed Rest Score: 0 Summed Difference Score: 0 PERFUSION FINDINGS Fairly uniform myocardial tracer uptake with no significant perfusion abnormalities FUNCTIONAL RESULTS (calculated via Gated SPECT) Stress Image LV EF (%): 78 Stress EDV (mL):73 TID: 0.79 Stress ESV (mL):16 FUNCTIONAL FINDINGS: Segmental wall motion analysis revealing no gross wall motion abnormalities IMPRESSIONS 1. Unremarkable Myocardial perfusion imaging 2. Normal LV ejection fraction of 78%. 3. LV wall motion analysis revealing no gross wall motion abnormalities. 4. Normal LV volume Low probability for coronary ischemia, based on the above findings Dr Diane Morgan MD FAC (Electronically Signed) Final Date: 21 November 2024 12:13 S
--- NOTE | 2024-11-21 10:44 | SUR.PHASEI ---
abnormal HR response post exercise Patient completed stress portion of today's exam. THR was achieved. Patient developed A SVT. HR 180 at maximum- sustaine. Patient felt dizzy but was hemodynamically stable during the event. I had the patient complete vagal manuevers. Successful conversion of the sustained HR to a tachycardic rhythm in the 110's. I reported the findings to Dr Morgan who is covering the cardiac lab procedures today. The findings were reported as well as the patient condition. Verbal orders given and carried out at his request.
--- NOTE | 2024-11-21 10:50 | SUR.PHASEI ---
[facility] message Unable to reach anyone at the [facility] clinic today. I left a message with the [facility] in [place]. Awaiting a return phone call.
[2024-11-21 11:05] VITALS: BP 138/64; PULSE 99
--- NOTE | 2024-11-21 11:07 | SUR.PHASEII ---
Discharge note Patient kept in recovery in CDL for 20 minutes post stress with no recurrence of the abnormal heart rhythm. Discharged in stable condition.
--- NOTE | 2024-11-21 11:18 | SUR.PHASEI ---
VA NOTE Dept of VA notfied of the findings of today's exam. Everything that Dr Morgan required to be said was reported off to them. They are waiting on the reports of today's exam to take further action. Noted. Dr Morgan made aware of this fact.
== END 2024-11-21 19:20 | disposition home or self-care (01) ==
LOC: CDL 08:01
PROVIDERS: PCP Family Medicine; Visit Provider Family Medicine
DX: I49.9 Cardiac arrhythmia, unspecified (principal); R93.1 Abnormal findings on diagnostic imaging of heart and coronary circulation; I47.10 Supraventricular tachycardia, unspecified
CPT/HCPCS: 36415; 78452; 93017; A9500

== ENCOUNTER 2024-11-21 12:43 | Emergency (ER) | payer OTHER, SELFPAY ==
[2024-11-21 12:52] VITALS: BP 145/89; PULSE 107; TEMP 36.7; O2SAT 100; BMI 23.6
--- NOTE | 2024-11-21 12:53 | ECG_ITS ---
[facility] Date: 2024-11-21 Pat Name: Barak Fair Department: Room: Gender: Male Traffic Personnel Supervisor: : 1960 Requested By: Kaylee Mckeon Order Number: [id number] Diop MD: Diane Morgan M.D. Measurements Intervals [place] Rate: 103 P: 71 [place]: 127 QRS: 79 QRSD: 87 T: 36 QT: 316 QTc: 415 Interpretive Statements SINUS TACHYCARDIA MODERATE ST DEPRESSION [0.05+ mV ST DEPRESSION] Compared to ECG 12/11/2023 21:22:53 ST (T wave) deviation now present Sinus bradycardia no longer present Electronically Signed On 11-23-2024 17:44:42 COPY MESSENGER by Diane Morgan M.D. [id number]
--- NOTE | 2024-11-21 15:08 | ED_ITS ---
HPI - Arrhythmia/Palpitations General: Chief Complaint: Arrhythmia/Palpitations Stated Complaint: [facility] reffered, afib Time Seen by Provider: 11/21/24 14:59 Source: patient Mode of arrival: ambulatory Limitations: no limitations History of Present Illness: Patient is a 63-year-old very nice male here with his significant other after he was told to come to the emergency department by the [place]. Patient underwent stress test imaging earlier this morning here at the hospital. Looking at documentation by nursing staff, patient ended up having an episode of SVT during or shortly after his stress test. This was eliminated using a vagal maneuver. Nursing staff had reportedly contacted Dr. Morgan to make him aware of event. He somehow ended up back at the [place]. he states they did not do an EKG but they did do a set of vitals and told him he was in A-fib with an elevated heart rate of 115 and sent him back to the emergency department for further evaluation. Upon arrival here he is completely asymptomatic. EKG performed in triage showing sinus tachycardia with a rate of 103. Duration: now resolved Associated symptoms: Reports no associated symptoms; Deny pre-syncope or syncope Related Data Previous Rx's ?Medication ?Instructions ?Recorded folic acid 1 mg tablet 1 mg PO DAILY #90 tabs 07/13 aspirin 81 mg tablet,delayed 81 mg PO DAILY 30 days #3 0 tabs 01/11/24 release cetirizine 10 mg tablet (Zyrtec) 10 mg PO DAILY PRN al lergy 06/17/24 symptoms #30 tabs methotrexate sodium 2.5 mg tablet See Rx Instructions PO .Q7days #90 06/17/24 tabs metoprolol tartrate 50 mg tablet 50 mg PO Q12H 30 days #180 tabs 08/09/24 amlodipine 10 mg tablet 10 mg PO DAILY #90 tabs 08/13 07/05 hydrochlorothiazide 25 mg tablet 25 mg PO QAM #90 tabs 09/09/24 losartan 100 mg tablet 100 mg PO DAILY #90 tabs atorvastatin 40 mg tablet (Lipitor) 40 mg PO DAILY #90 tabs 11/07/24 magnesium L-lactate 84 mg 84 mg PO BID #60 tabs tablet,extended release (Magtab) Allergies Allergy/AdvReac Type Severity Reaction Status Date / Time No Known Allergies Allergy Verified 11/21/24 13:01 Review of Systems Card: Denies: chest pain, palpitations, irregular heart rhythm, edema, swelling of feet/ankles, lightheadedness, syncope, pre-syncope, dyspnea on exertion, orthopnea, leg pain with exertion or acrocyanosis Resp: Denies: dyspnea Neuro: Denies: dizziness [facility] ED PFSH: Medical History Atrial fibrillation (HFpEF) heart failure with preserved eje ction fraction Essential hypertension Encounter for smoking cessation counseling Immunization counseling High risk medication use Seropositive rheumatoid arthritis of multiple sites Surgical History No pertinent past surgical history Family History Other Hypertension Rheumatoid arthritis Denies family history of Diabetes Lupus CAD (coronary artery disease) Psoriatic arthritis Clotting disorder Dementia Hyperlipidemia Psychiatric illness Chronic kidney disease (CKD) Anesthesia complication Bleeding disorder Lung disease Cancer Stroke Social History Smoking and tobacco/nicotine status: current every day tobacco/nicotine user cigarettes Packs smoked per day: 0.25 Years cigarettes smoked: 45 Alcohol intake: current Alcohol intake frequency: 0-2 Drinks per Day Alcohol type: beer Substance/Drug Use: never Lives independently: Yes Marital status: Single Number of children: 0 Current occupational status: employed Current occupation: [email or web address] needs: No Agree to transfusion: Yes Physical Exam Const: COMMON NORMALS: no acute distress, average body habitus, patient oriented x3, no limitations, healthy appearing, alert and well nourished Resp: COMMON NORMALS: normal respiratory effort and clear to auscultation bilaterally AUSCULTATION: clear to auscultation bilaterally Cardio: COMMON NORMALS: regular rate and regular rhythm RATE: regular rate RHYTHM: regular rhythm Extremity: COMMON NORMALS: no clubbing, cyanosis or edema, no calf tenderness and no pedal edema GENERAL: Yes normal exam except as noted Neuro: COMMON NORMALS: patient oriented x3 SENSORIUM/ORIENTATION: Yes alert Course Vital Signs: Vital signs: Vital Signs Temperature 98.1 F 11/21/24 12:52 Pulse Rate 107 H 11/21/24 12:52 Blood Pressure 145/89 11/21/24 12:52 Pulse Oximetry 100 11/21/24 12:52 Oxygen Delivery Me thod Room Air 11/21/24 12:52 MDM - Arrhythmia/Palpitations Medical Decision Making Patient upon arrival to the emergency department is completely asymptomatic. EKG performed in triage showing sinus tachycardia with a rate of 103. Repeat EKG showing normal sinus rhythm rate of 86. I did review nursing documentation from the stress testing earlier today. Dr. Morgan has already interpreted myocardial perfusion scan as normal. I did speak to Dr. Morgan about patient. A greed there was nothing further do to from ED standpoint. Recommended getting him set up with an event monitor x 1 month and placing him on Magtab 84mg BID and follow up in office. CM referral has been placed for monitor and cardiology follow up. Return precautions given. Medical Records I reviewed the patient's medical records. No radiology studies performed this visit Discharge Plan Discharge Patient Disposition: Home Clinical Impression: Supraventricular tachycardia, nonsustained Condition: Stable Prescriptions: New magnesium L-lactate [Magtab] 84 mg tablet extended release 84 mg PO BID Qty: 60 0RF No Action folic acid 1 mg tablet 1 mg PO DAILY Qty: 90 3RF cetirizine [Zyrtec] 10 mg tablet 10 mg PO DAILY PRN (Reason: allergy symptoms) Qty: 30 2RF methotrexate sodium 2.5 mg tablet See Rx Instructions PO .Q7days Qty: 90 0RF Rx Instructions: take 6 tabs on same day once a week PO .Q7days; aspirin 81 mg tablet,delayed release (DR/EC) 81 mg PO DAILY 30 Days Qty: 30 0RF metoprolol tartrate 50 mg tablet 50 mg PO Q12H 30 Days Qty: 180 1RF amlodipine 10 mg tablet 10 mg PO DAILY Qty: 90 1RF losartan 100 mg tablet 100 mg PO DAILY Qty: 90 1RF hydrochlorothiazide 25 mg tablet 25 mg PO QAM Qty: 90 1RF atorvastatin [Lipitor] 40 mg tablet 40 mg PO DAILY Qty: 90 1RF Discharge Orders: Discharge ED (Routine); Ordered 11/21/24 Ordered By: Fartun Le Referrals: Teo Watts MD [Primary Care Provider] - Activity Restrictions/Additional Instructions: As we discussed, I spoke to Dr. Morgan our medical observer on-call. He is requ esting that we set you up with an event monitor over the next month. He is also placing you on magnesium. We will have case management set you up with a follow-up appointment with them. In the meantime, [facility] with [facility]. Print Language: [place] African Coding Level of Care Code ED Communication Instructor for Kandice Lima
--- NOTE | 2024-11-21 15:23 | ECG_ITS ---
[facility] Test Date: 2024-11-21 Pat Name: Barak Fair Department: Room: Gender: Male Crop Insurance Claims Adjuster: : 1960 Requested By: Fartun Le Order Number: [id number] Diop MD: Diane Morgan M.D. Measurements Intervals [place] Rate: 86 P: 50 [place]: 108 QRS: 76 QRSD: 99 T: 49 QT: 346 QTc: 414 Interpretive Statements SINUS RHYTHM WITH SHORT [place] INTERVAL MODERATE ST DEPRESSION [0.05+ mV ST DEPRESSION] Compared to ECG 11/21/2024 12:57:00 Short [place] interval now present Sinus tachycardia no longer present ST (T wave) deviation still present Electronically Signed On 11-23-2024 18:11:22 GRATING MACHINE OPERATOR by Diane Morgan M.D. [email or web address]
[2024-11-21 15:57] VITALS: BP 125/84; PULSE 88; RESP 16; O2SAT 100
--- NOTE | 2024-11-24 23:18 | DCPLANNER ---
Message sent to cardiology for holter monitor-
== END 2024-11-21 15:56 | disposition home or self-care (01) ==
PROVIDERS: Emergency Provider Physician Assistant; PCP Family Medicine
DX: I47.10 Supraventricular tachycardia, unspecified (principal); Z79.82 Long term (current) use of aspirin; F17.210 Nicotine dependence, cigarettes, uncomplicated; I11.0 Hypertensive heart disease with heart failure; I50.30 Unspecified diastolic (congestive) heart failure
CPT/HCPCS: 93005; 99283

== ENCOUNTER → 2024-11-22 09:57 | Outpatient (BNVA) | payer OTHER, SELFPAY | PROVIDERS: PCP Family Medicine; Visit Provider Surgery | DX: Z12.11 Encounter for screening for malignant neoplasm of colon (principal) | CPT/HCPCS: 99204 ==

== ENCOUNTER 2024-11-25 12:31 | Outpatient (CLI) | payer OTHER, SELFPAY ==
--- NOTE | 2024-11-25 12:39 | CT_ITS ---
WS: [id number] LDCT LUNG CANCER SCREENING TECHNIQUE: Noncontrast CT of the chest with coronal and sagittal reformatted images. CLINICAL INFORMATION: HX OF TOBACCO USE COMPARISON: None. DLP: 54.39 mGy.cm DIvol: Mean CTDIvol: 1.00 (mGy) All CT scans at [facility] use at least one of these dose optimization techniques: automated exposure control; mA and/or kV adjustment per patient size (includes targeted exams where dose is matched to clinical indication); or iterative reconstruction. FINDINGS: Moderate chronic emphysematous changes. Hyperinflation. Few calcified granulomas. Several tiny scattered micronodules. Small fibrotic opacity along the RIGHT fissure. No other suspicious pulmonary parenchymal abnormalities. Aortic calcification. Numerous small anterior mediastinal peribronchial lymph nodes. Calcified hilar and subcarinal lymph nodes. Small esophageal hiatal hernia. No axillary lymphadenopathy. Adrenal glands are normal. Dense coronary calcification. Thoracic kyphosis. CT/CT lung screening 97652 IMPRESSION: LUNG-RADS: 2-Benign Appearance or Behavior FOLLOW UP: 12 Month: Continue annual screening with LDCT
== END 2024-11-25 12:32 | disposition home or self-care (01) ==
LOC: RAD 12:32
PROVIDERS: PCP Family Medicine; Visit Provider Family Medicine
DX: Z12.2 Encounter for screening for malignant neoplasm of respiratory organs (principal); Z87.891 Personal history of nicotine dependence; J43.9 Emphysema, unspecified; R91.8 Other nonspecific abnormal finding of lung field; J84.10 Pulmonary fibrosis, unspecified; I70.0 Atherosclerosis of aorta; R59.0 Localized enlarged lymph nodes; K44.9 Diaphragmatic hernia without obstruction or gangrene; I25.10 Atherosclerotic heart disease of native coronary artery without angina pectoris; M40.294 Other kyphosis, thoracic region
CPT/HCPCS: 71271

== ENCOUNTER 2024-12-06 13:34 | Outpatient (CLI) | payer OTHER, SELFPAY ==
[2024-12-06] MEDS: albuterol 2.5 mg/3 mL Neb INHALATION (13:48)
== END 2024-12-06 13:35 | disposition home or self-care (01) ==
LOC: RT 13:34
PROVIDERS: PCP Family Medicine; Visit Provider Family Medicine
DX: J44.9 Chronic obstructive pulmonary disease, unspecified (principal); J98.8 Other specified respiratory disorders; R93.89 Abnormal findings on diagnostic imaging of other specified body structures
CPT/HCPCS: 94060; 94726; 94729

== ENCOUNTER → 2024-12-09 09:30 | Outpatient (BNVA) | payer OTHER, SELFPAY | PROVIDERS: PCP Family Medicine; Visit Provider Internal Medicine | DX: Z01.818 Encounter for other preprocedural examination (principal); I48.91 Unspecified atrial fibrillation | CPT/HCPCS: 99204 ==

== ENCOUNTER → 2025-01-23 08:34 | Outpatient (BNVA) | payer OTHER, SELFPAY | PROVIDERS: PCP Family Medicine; Referring Provider Family Medicine; Visit Provider Internal Medicine Rheumatology | DX: M05.79 Rheumatoid arthritis with rheumatoid factor of multiple sites without organ or systems involvement (principal); Z79.899 Other long term (current) drug therapy; Z71.85 Encounter for immunization safety counseling; Z71.6 Tobacco abuse counseling | CPT/HCPCS: 36415; 80076; 82565; 85025; 85651; 86140; 99214 ==

== ENCOUNTER 2025-02-06 10:40 | Outpatient (CLI) | payer OTHER, SELFPAY ==
[2025-02-06 12:07] LABS: Blood Urea Nitrogen 31 mg/dL (8-23); Glomerular Filtration Rate 61.1 mL/min (90-130)
== END 2025-02-06 10:41 | disposition home or self-care (01) ==
LOC: LAB 10:42
PROVIDERS: PCP Family Medicine; Visit Provider Internal Medicine Rheumatology
DX: R79.9 Abnormal finding of blood chemistry, unspecified (principal)
CPT/HCPCS: 36415; 82565; 84520

== ENCOUNTER → 2025-02-09 12:43 | Outpatient (BNVA) | payer OTHER, SELFPAY | PROVIDERS: PCP Family Medicine; Visit Provider Internal Medicine | DX: I48.91 Unspecified atrial fibrillation (principal); Z79.82 Long term (current) use of aspirin; F17.210 Nicotine dependence, cigarettes, uncomplicated | CPT/HCPCS: 99214 ==

== ENCOUNTER 2025-02-16 07:47 | Day surgery (SDC) | payer OTHER, SELFPAY ==
[2025-02-16 07:57] VITALS: BP 96/61; PULSE 61; RESP 18; TEMP 36.3; O2SAT 99; BMI 23.6
--- NOTE | 2025-02-16 07:59 | W.PM.OPSFHP ---
Same Day Surgery H&P Indication for Procedure/HPI DATE OF PROCEDURE: February 16, 2025 CHIEF COMPLAINT/INDICATIONFOR SURGICAL PROCEDURE: need for screening colonoscopy PREOP DIAGNOSIS: need for screening colonoscopy PLANNED PROCEDURE: Operation Date: 02/16/25 09:15 Proposed Procedures p Colonoscopy [id number] G0105 Z12.11(Not Applicable) - Ghanshyam Mancera MD Medications/Allergies* Home Medications ?Medication ?Instructions ?Recorded ?Confirmed ?Type nifedipine 90 mg tablet,extended 90 mg PO DAILY 12/09/24 02/13/25 History release magnesium L-lactate 84 mg 84 mg PO DAILY 02/13/25 02/13/25 History tablet,extended release (Magtab) Allergies/Adverse Reactions Allergy/AdvReac Type Severity Reaction Status Date / Time No Known Allergies Allergy Verified 02/13/25 11:12 Pertinent History/Comorbid Conditions* Medical History (Updated 12/27/24 @ 12:24 by Justino Morgan M.D) Atrial fibrillation (HFpEF) heart failure with preserved ejection fraction Essential hypertension Encounter for smoking cessation counseling Immunization counseling High risk medication use Seropositive rheumatoid arthritis of multiple sites Surgical History (Updated 12/13/23 @ 00:01 by TODD Giron) No pertinent past surgical history Family History (Updated 05/11/23 @ 09:40 by Kellen Rubio LPN) Rheumatoid arthritis Hypertension Denies family history of Diabetes Lupus CAD (coronary artery disease) Psoriatic arthritis Clotting disorder Dementia Hyperlipidemia Psychiatric illness Chronic kidney disease (CKD) Anesthesia complication Bleeding disorder Lung disease Cancer Stroke Social History Smoking and tobacco/nicotine status: current every day tobacco/nicotine user cigarettes Packs smoked per day: 0.25 Years cigarettes smoked: 45 Alcohol intake: current Alcohol intake frequency: 0-2 Drinks per Day Alcohol type: beer Substance/Drug Use: never Lives independently: Yes Marital status: Single Number of children: 0 Current occupational status: employed Current occupation: [employer] Special javi needs: No Agree to transfusion: Yes Pertinent Exam Findings alert, oriented x 3 and clear to auscultation bilaterally Recommendations Surgery/Procedure today Coding Level of Care Code Acute Code for Kandice Lima
[2025-02-16] MEDS: sodium chloride 0.9% 1,000 ML 15 ML IV (08:09)
--- NOTE | 2025-02-16 08:46 | ANES.PREANE2 ---
Pre-Anesthetic Assessment Height/Weight: Height 1.75 m Weight 72.575 kg Temp Pulse Resp BP Pulse Ox O2 Del Method 97.3 F L 61 18 96/61 99 Room Air 02/16/25 07:57 02/16/25 07:57 02/16/25 07:57 02/16/25 07:57 02/16/25 07:57 02/16/25 07:57 Preop Diagnosis: need for screening colonoscopy Operation Date: 02/16/25 09:15 Proposed Procedures p Colonoscopy 55854 G0105 Z12.11(Not Applicable) - Ghanshyam Mancera MD Was Beta Makayla taken within 24 hours: Yes Was Clonidine taken within 24 hours: N/A Last intake: Intake Last Liquid Date 02/15/25 Last Liquid Time 20:00 Last Solid Date 02/14/25 Last Solid Time 18:00 Social Tobacco and No alcohol Exam alert, oriented x 3, clear to auscultation bilaterally and regular rate & rhythm Airway Submandibular: within normal limits Cervical ROM: within normal limits Mallampati: Class II Comments: Comments: Poor dentition. Several missing teeth History/ROS No significant history except as noted and No significant complaints Pulmonary None reported CV/HEM Atrial Fibrillation and Hypertension None reported Hepatic None reported GI None reported Metabolic None reported Musc/skel Rheumatoid Arthritis Neuropsych None reported Anesthetic Plan ASA status: 3 Anesthesia: Anesthesia Evaluation and MAC Risk of > 500 ml blood loss (7ml/kg in children): No Medications/Allergies Home Medications ?Medication ?Instructions ?Recorded ?Confirmed ?Last Taken ?Type aspirin 81 mg tablet,delayed 81 mg PO DAILY 30 days #30 tabs 01/11/24 02/13/25 02/12/25 Rx release hydrochlorothiazide 25 mg tablet 25 mg PO QAM #90 tabs 09/09/24 02/13/25 02/13/25 Rx losartan 100 mg tablet 100 mg PO DAILY #90 tabs 09/09/24 02/13/25 02/12/25 Rx atorvastatin 40 mg tablet (Lipitor) 40 mg PO DAILY #90 tabs 11/07/24 02/13/25 02/12/25 Rx nifedipine 90 mg tablet,extended 90 mg PO DAILY 12/09/24 02/13/25 02/12/25 History release folic acid 1 mg tablet 1 mg PO DAILY #90 tabs 01/23/25 02/13/25 02/12/25 Rx prednisone 20 mg tablet See Rx Instructions PO .COMPLEX 01/23/25 02/13/25 Unknown Rx PRN joint pain flare #30 tabs metoprolol tartrate 50 mg tablet 50 mg PO Q12H 30 days #60 tabs 02/06/25 02/13/25 02/13/25 Rx magnesium L-lactate 84 mg 84 mg PO DAILY 02/13/25 02/13/25 02/13/25 History tablet,extended release (Magtab) Allergies Allergy/AdvReac Type Severity Reaction Status Date / Time No Known Allergies Allergy Verified 02/13/25 11:12 Current Medications Generic Name Dose Route Start Last Admin Trade Name Freq PRN Reason Stop Dose Admin Sodium Chloride 1,000 mls @ 15 mls/hr 02/16/25 07:50 02/16/25 08:09 Sodium Chloride 0.9% IV 02/17/25 07:49 15 mls/hr .Q24H PRN Administration COLONOSCOPY FLUIDS PFSH Anesthesia Medical History Atrial fibrillation (HFpEF) heart failure with preserved ejection fraction Essential hypertension Encounter for smoking cessation counseling Immunization counseling High risk medication use Seropositive rheumatoid arthritis of multiple sites Surgical History No pertinent past surgical history Family History Other Hypertension Rheumatoid arthritis Denies family history of Diabetes Lupus CAD (coronary artery disease) Psoriatic arthritis Clotting disorder Dementia Hyperlipidemia Psychiatric illness Chronic kidney disease (CKD) Anesthesia complication Bleeding disorder Lung disease Cancer Stroke Social History Smoking and tobacco/nicotine status: current every day tobacco/nicotine user cigarettes Packs smoked per day: 0.25 Years cigarettes smoked: 45 Alcohol intake: current Alcohol intake frequency: 0-2 Drinks per Day Alcohol type: beer Substance/Drug Use: never Lives independently: Yes Marital status: Single Number of children: 0 Current occupational status: employed Current occupation: [employer] Special javi needs: No Agree to transfusion: Yes Data Anesthesia Cardiac Studies: Echocardiogram 12/11/23 Sestamibi Stress Test (Cardiology) 11/21/24 Cardiac Event Monitor 12/05/24
[2025-02-16 09:25] VITALS: BP 84/57; PULSE 59; RESP 16; TEMP 36.3; O2SAT 99
[2025-02-16 09:59] VITALS: BP 108/64; PULSE 65; RESP 16; O2SAT 99
--- NOTE | 2025-02-16 10:03 | ANE.PACU2 ---
Inpatient post-anesthesia follow up: Airway intact: Yes Vital signs: Temperature 97.4 F Pulse Rate 65 Respiratory Rate 16 Blood Pressure 108/64 Pulse Oximetry 99 Oxygen Delivery Me thod Room Air Oxygen Flow Rate 4 Fraction of Inspir ed Oxygen Hydration adequate: Yes Nausea and vomiting: No Pain level: 1 Mental status: Baseline
== END 2025-02-16 10:03 | disposition home or self-care (01) ==
PROVIDERS: PCP Family Medicine; Visit Provider Surgery
PROC: 0DJD8ZZ Inspection of Lower Intestinal Tract, Via Natural or Artificial Opening Endoscopic (ICD-10-PCS; CPT 45378; principal; 2025-02-16 09:15)
DX: Z12.11 Encounter for screening for malignant neoplasm of colon (principal); D12.2 Benign neoplasm of ascending colon; D12.3 Benign neoplasm of transverse colon; M05.79 Rheumatoid arthritis with rheumatoid factor of multiple sites without organ or systems involvement; I48.91 Unspecified atrial fibrillation; I11.0 Hypertensive heart disease with heart failure; I50.32 Chronic diastolic (congestive) heart failure; F17.210 Nicotine dependence, cigarettes, uncomplicated; Z79.899 Other long term (current) drug therapy; Z79.82 Long term (current) use of aspirin
CPT/HCPCS: 45385; 88305; J2704; J7030

== ENCOUNTER → 2025-02-28 08:17 | Outpatient (BNVA) | payer OTHER, SELFPAY | PROVIDERS: PCP Family Medicine; Visit Provider Surgery | DX: Z09 Encounter for follow-up examination after completed treatment for conditions other than malignant neoplasm (principal) | CPT/HCPCS: 99213 ==

== ENCOUNTER → 2025-08-29 14:44 | Outpatient (BNVA) | payer OTHER, SELFPAY | PROVIDERS: PCP Family Medicine; Visit Provider Internal Medicine | DX: I48.91 Unspecified atrial fibrillation (principal); Z79.01 Long term (current) use of anticoagulants | CPT/HCPCS: 99213 ==

== ENCOUNTER → 2025-09-21 09:52 | Outpatient (BNVA) | payer OTHER, SELFPAY | PROVIDERS: PCP Family Medicine; Visit Provider Dermatology | DX: L21.8 Other seborrheic dermatitis (principal); D18.01 Hemangioma of skin and subcutaneous tissue; L81.4 Other melanin hyperpigmentation; L57.8 Other skin changes due to chronic exposure to nonionizing radiation; L82.1 Other seborrheic keratosis; D48.5 Neoplasm of uncertain behavior of skin | CPT/HCPCS: 11102; 99203 ==